=== PATIENT | male | born 1980 | race Caucasian/White ===

== ENCOUNTER 2022-10-09 10:43 | Emergency (ER) | payer MEDICARE ==
[~2022-10-09] VITALS: Ht 188 cm; Wt 83.9 kg
[~2022-10-09 10:43] MED LIST: Cleocin HCl150 MG PO; NAPR500; Prednisone20 MG PO; TRAZ50; Ultram50 MG PO
[2022-10-09 10:58] VITALS: BP 148/98
[2022-10-09] MEDS ORDERED: [UNRECOGNIZED DRUG - CODE] (11:00)
== END 2022-10-09 12:31 | disposition home or self-care (01) ==
LOC: ER 10:43
DX: T25.212A Burn of second degree of left ankle, initial encounter (principal); T31.0 Burns involving less than 10% of body surface; X08.8XXA Exposure to other specified smoke, fire and flames, initial encounter; Z23 Encounter for immunization; F17.200 Nicotine dependence, unspecified, uncomplicated
CPT/HCPCS: 90714; 90715; A9270

== ENCOUNTER 2025-01-27 00:51 | Emergency (ER) | payer MEDICARE, OTHER ==
[~2025-01-27] VITALS: Ht 188 cm; Wt 88.5 kg
[~2025-01-27 00:51] MED LIST changes: +[UNRECOGNIZED DRUG - CODE]
[2025-01-27] MEDS ORDERED: Ketorolac Tromethamine 15mg Vial IM ONE (07:50)
[2025-01-27 08:30] VITALS: BP 149/95
== END 2025-01-27 08:58 | disposition home or self-care (01) ==
LOC: ER 00:51
DX: S46.001A Unspecified injury of muscle(s) and tendon(s) of the rotator cuff of right shoulder, initial encounter (principal); F17.200 Nicotine dependence, unspecified, uncomplicated; X58.XXXA Exposure to other specified factors, initial encounter
CPT/HCPCS: 73030; 96372; 99283-25; A9270; J1885